=== PATIENT | male | born 1995 | race African-American/Black ===

== ENCOUNTER 2018-05-10 13:06 | Emergency (ER) | payer MEDICAID ==
[~2018-05-10] VITALS: Ht 190.5 cm; Wt 77.1 kg
[2018-05-10 13:20] VITALS: BP 125/76
--- NOTE | 2018-05-10 14:23 | Diagnostic Imaging Report ---
EXAM: XR Left Knee, 3 views CLINICAL HISTORY: Left knee pain and swelling TECHNIQUE: Three views of the left knee. COMPARISON: No relevant prior studies available. FINDINGS: Bones/joints: Unremarkable. No visible displaced fracture. No dislocation. No osseous erosions. Visualized joint spaces appear unremarkable. Soft tissues: Unremarkable. No radiodense foreign bodies. No soft tissue gas lucencies. IMPRESSION: Unremarkable left knee x-rays.
[2018-05-10] MEDS ORDERED: IBUPROFEN600 MG ORAL (14:29)
[2018-05-10] MEDS ORDERED: NORCO 5-325 TA1 EACH ORAL (14:29)
--- NOTE | 2018-05-11 12:15 | Emergency Room Report ---
History of Present Illness General Chief Complaint: Lower Extremity Injury Source: Patient Present Illness HPI Patient is a 22-year-old male presenting for left knee pain. He states that he was sitting crosslegged and when he stood up he felt immediate pain to the left knee. He states that he heard popping as well. Pain is a 9 out of 10 dull ache and is worse with movement. He has tried Motrin and Tylenol which does not help. He admits to previous knee injury but is unsure of the actual injury. Denies any numbness or tingling He denies any other symptoms Allergies: Coded Allergies: SHELLFISH DERIVED (Verified Allergy, Unknown, 05/10/18) Uncoded Allergies: SHELLFISH (Allergy, Unknown, 05/10/18) Patient History Past Medical History: see triage record Pertinent Family History: none Reviewed Nursing Documentation: PMH: Agreed; PSxH: Agreed Nursing Documentation-PMH Past Medical History: No History, Except For History Of Psychiatric Problem: Yes - ADHD Review of Systems All Other Systems: negative except mentioned in HPI Physical Exam Vital Signs Date Time Temp Pulse Resp B/P (MAP) Pulse Ox O2 Delivery O2 Flow Rate FiO2 05/10/18 13:20 98.6 76 14 125/76 98 Room Air 98.6 Sp02 EP Interpretation: reviewed, normal General Appearance: no apparent distress, alert, GCS 15, non-toxic Head: normocephalic, atraumatic Musculoskeletal: normal inspection, back normal, normal range of motion, no calf tenderness, Anabel's Sign negative, tender - L knee posterior Neurologic: alert, oriented x3, responsive, motor strength/tone normal, sensory intact, speech normal Psychiatric: judgement/insight normal, memory normal, mood/affect normal, no suicidal/homicidal ideation Skin: normal color, no rash, warm/dry, well hydrated Procedures Splinting Splinting : Consent: Verbal Location: L knee Pre-Made Type: MAZIN wrap Pre-Proc Neuro Vasc Exam: normal Post-Proc Neuro Vasc Exam: normal Patient Tolerated: Well Complications: None Medical Decision Making PA Attestation Dr. Ambrosio is my supervising physician. Patient management was discussed with my supervising physician Diagnostic Impression: Primary Impression: Knee sprain Qualified Codes: S83.92XA - Sprain of unspecified site of left knee, initial encounter ER Course Patient is a 22-year-old male presenting for left knee pain Ddx considered include but not limited to sprain/strain, fracture, contusion PE: NAD L knee: no obvious deformity. No ecchymosis. No edema. TTP to posterior knee. Antalgic walk No laxity. Full AROM but slow and painful extension L knee xray unremarkable. Mazin wrap and crutches provided. Pt told he may need MRI and needs to see his PMD CAESAR. Pain meds provided. ER precautions given Other X-Ray Diagnostic Results Other X-Ray Diagnostic Results : X-Ray ordered: L knee # of Views/Limited Vs Complete: 3 View Indication: Pain EP Interpretation: Yes PA Xray: Interpretation reviewed, by supervising MD, and agrees with findings. Interpretation: no dislocation, no soft tissue swelling, no fractures Impression: No acute disease Electronically Signed by: Hood Tanner PA-C Last Vital Signs Date Time Temp Pulse Resp B/P (MAP) Pulse Ox O2 Delivery O2 Flow Rate FiO2 05/10/18 14:43 99.3 85 20 99/56 98 Room Air Status: improved Disposition: HOME, SELF-CARE Condition: Improved Scripts Ibuprofen* (MOTRIN*) 600 Mg Tablet 600 MG ORAL Q8H PRN for For Pain, #30 TAB 0 Refills Prov: HOOD TANNER 05/10/18 Hydrocodone Bit/Acetaminophen 5-325* (NORCO 5-325*) 1 Each Tablet 1 TAB ORAL Q6HR PRN for For Pain, #10 TAB 0 Refills Prov: HOOD TANNER 05/10/18 Referrals: NOT CHOSEN [facility]/,REFERRING (PCP) Patient Instructions: Knee Sprain Additional Instructions: I discussed my findings with the patient. All questions and concerns have been answered. Treatment and medication compliance have been addressed. I advised the patient that they need to follow up with PMD in 3-5 days. Return to ED if pain remains or worsens, numbness or tingling occurs, new rash is noticed, fever is noticed, or if needed for any reason. Patient verbalized understanding of discharge instructions. The patient was informed he will likely need an MRI and will have to follow up with primary doctor HOOD TANNER May 11, 2018 12:15
== END 2018-05-10 14:43 | disposition home or self-care (01) ==
LOC: EMR 14:06
DX: S83.92XA Sprain of unspecified site of left knee, initial encounter (principal); X50.9XXA Other and unspecified overexertion or strenuous movements or postures, initial encounter; Y92.9 Unspecified place or not applicable; Z91.013 Allergy to seafood
CPT/HCPCS: 99283